=== PATIENT | female | born 1995 | race Caucasian/White ===

== ENCOUNTER 2018-01-07 18:55 | Emergency (ER) | payer OTHER ==
[~2018-01-07] VITALS: Ht 165.1 cm; Wt 71.0 kg
[2018-01-07] MEDS ORDERED: SODIUM CHLORIDE 0.9% 1000ML 1,000 ML IV STA (19:10)
[2018-01-07] MEDS ORDERED: KETOROLAC TROMETHAMINE 30 MG/ML VIAL IV STA (19:10)
[2018-01-07 19:19] VITALS: TEMP 36.7; O2SAT 98; Ht 165.1 cm; Wt 71.0 kg
--- NOTE | 2018-01-07 19:38 | DIAGNOSTIC IMAGING REPORT ---
CHEST ONE VIEW PORTABLE HISTORY: 22 years-old Female EVALUATE ALTERED MENTAL STATUS/WEAKNESS acutely altered mental status COMPARISON: None available TECHNIQUE: Portable AP view of the chest FINDINGS: Cardiomediastinal and hilar silhouettes are within normal limits. No pneumothorax, pleural effusion, focal airspace consolidation or overt pulmonary edema. The bones of the chest appear grossly intact. IMPRESSION: No acute process. The above report was generated using voice recognition software. It may contain grammatical, syntax or spelling errors. Electronically signed by: Artem Parr M.D. 01/07/2018 7:37 PM Dictated Date/Time: 01/07/2018 7:36 PM
[2018-01-07 19:42] VITALS: O2SAT 98
[2018-01-07 19:45] LABS: BASO % 0.2 %; BASO ABS # 0.02 K/uL (0-0.2); EOS % 0.4 %; EOS ABS # 0.03 K/uL (0-0.5); HEMATOCRIT 41.4 % (37-47); HEMOGLOBIN 14.8 g/dL (12.0-16.0); IG# 0.02 K/uL (0.00-0.02); LYMPH % 43.3 %; LYMPH ABS # 3.71 K/uL (1.2-3.4); MEAN CELL VOLUME 92.4 fL (80-100); MEAN CORPUSCULAR HGB CONC 35.7 g/dl (32-36); MEAN PLATELET VOLUME 9.6 fL (7.4-10.4); MONO % 9.7 %; MONO ABS # 0.83 K/uL (0.11-0.59); NEUT % 46.2 %; NEUT ABS # 3.95 K/uL (1.4-6.5); PLATELET COUNT 223 K/uL (130-400); RED CELL DISTRIBUTION WIDTH CV 11.6 % (11.5-14.5); RED CELL DISTRIBUTION WIDTH SD 39.5 fL (36.4-46.3); WHITE BLOOD COUNT 8.56 K/uL (4.8-10.8)
--- NOTE | 2018-01-07 20:03 | DIAGNOSTIC IMAGING REPORT ---
HEAD WITHOUT CONTRAST (CT) CLINICAL HISTORY: 22 years-old Female with EVALUATE ALTERED MENTAL STATUS/WEAKNESS. Acute weakness with altered mental status TECHNIQUE: Multiple axial CT images of the head were obtained without contrast. A dose lowering technique was utilized adhering to the principles of ALARA. CT DOSE: 537.48 mGy.cm COMPARISON: None. FINDINGS: No acute intracranial hemorrhage, midline shift, intracranial mass, hydrocephalus, territorial ischemia or abnormal extra-axial collection. The calvarium is intact. The paranasal sinuses, mastoid air cells, and middle ear cavities are clear. IMPRESSION: No acute intracranial abnormality. The above report was generated using voice recognition software. It may contain grammatical, syntax or spelling errors. Electronically signed by: Artem Parr M.D. 01/07/2018 8:01 PM Dictated Date/Time: 01/07/2018 8:00 PM
[2018-01-07 20:05] LABS: ALBUMIN 4.3 gm/dl (3.4-5.0); ALT/SGPT 28 U/L (12-78); BLOOD UREA NITROGEN 9 mg/dl (7-18); CALCIUM 9.2 mg/dl (8.5-10.1); CARBON DIOXIDE 24 mmol/L (21-32); CREATININE 0.55 mg/dl (0.60-1.20); GLUCOSE 72 mg/dl (70-99); POTASSIUM 3.5 mmol/L (3.5-5.1); SODIUM 137 mmol/L (136-145)
[2018-01-07] MEDS ORDERED: LORA-741 PO (20:13)
[2018-01-07] MEDS ORDERED: CYCL5TAB PO (20:13)
[2018-01-07 20:16] LABS: ALKALINE PHOSPHATASE 62 U/L (45-117); AST/SGOT 14 U/L (15-37); TOTAL PROTEIN 7.8 gm/dl (6.4-8.2)
[2018-01-07 21:24] VITALS: BP 129/93; PULSE 112
--- NOTE | 2018-01-08 00:17 | EMERGENCY ROOM VISIT NOTE ---
History Report prepared by Graceibjosé miguel: Fabrice Benitez Under the Supervision of: Dr. Randy Rosa D.O. First contact with patient: 18:56 Stated Complaint: SYNCOPE History of Present Illness The patient is a 22 year old female who presents to the Emergency Room with complaints of a resolved near syncopal episode that occurred prior to arrival. The patient states that she has been experiencing intermittent posterior head pressure and a feeling "as if I am going to pass out" for the last month. The patient states that the pressure occurs randomly throughout the day and is not changed with position. She reports that she has seen her physician at home where she was given muscle relaxers because they thought the pain was due to musculoskeletal neck pain. The patient states that she had an MRA done three days ago, which was negative. She reports that today she started to experience the posterior head pressure on the right side in class. The patient states that when she got home, she took a muscle relaxer and took a nap. She reports that when she woke up and stood up, the headache wrapped around her head and her eyes "blanked out". The patient denies any loss of consciousness. The patient denies fevers, chest pain, shortness of breath, nausea, vomiting, diarrhea, pain with urination, and melena. She denies diabetes, hypertension, hyperlipidemia, CAD, history of sudden at a young age, and smoking. The patient reports a family history of brain aneurysms, which caused her grandfather to at the age of 30. Source of History: patient Onset: prior to arrival Position: other (global) Timing: resolved Associated Symptoms: No fevers, No chest pain, No SOB, No nausea, No vomiting, No melena, No diarrhea, No urinary symptoms Review of Systems See HPI for pertinent positives & negatives. A total of 10 systems reviewed and were otherwise negative. Past Medical & Surgical Medical Problems: (1) No known health problems Family History FH: aneurysm Social History Marital Status: single Housing Status: lives with roommate Occupation Status: [employer] student Current/Historical Medications Scheduled PRN Cyclobenzaprine Hcl (Flexeril), 5 MG PO HS PRN for Muscle Spasms Lorazepam (Ativan), 0.25 MG PO TID PRN for Anxiety Allergies Coded Allergies: No Known Allergies (Unverified , 01/07/18) Physical Exam Vital Signs Date Time Temp Pulse Resp B/P (MAP) Pulse Ox O2 Delivery O2 Flow Rate FiO2 01/07/18 21:24 106 122/82 96 135/89 112 129/93 01/07/18 19:42 98 Room Air 01/07/18 19:19 36.7 88 17 143/96 98 Room Air Physical Exam GENERAL: Sitting up in bed, alert, well appearing, well nourished, no distress, non-toxic EYE EXAM: normal conjunctiva. PERRL and EOM's intact. OROPHARYNX: no exudate, no erythema, lips, buccal mucosa, and tongue normal and mucous membranes are moist NECK: supple, no nuchal rigidity, no adenopathy, acute reproducible tenderness bilaterally to the cervical paraspinal region, worse on right side tracking to trapezius. LUNGS: Clear to auscultation. Normal chest wall mechanics HEART: no murmurs, S1 normal and S2 normal ABDOMEN: abdomen soft, non-tender, normo-active bowel sounds, no masses, no rebound or guarding. BACK: Back is symmetrical on inspection and there is no deformity, no midline tenderness, no CVA tenderness. SKIN: no rashes and no bruising UPPER EXTREMITIES: upper extremities are grossly normal. LOWER EXTREMITIES: No pitting edema. NEURO EXAM: Normal sensorium, cranial nerves II-XII grossly intact, normal speech, no gross weakness of arms, no gross weakness of legs. No drift. Finger to nose intact. Gross sensation intact. Medical Decision & Procedures ER Provider Diagnostic Interpretation: Radiology results as stated below per my review and the radiologist's interpretation: HEAD WITHOUT CONTRAST (CT) CLINICAL HISTORY: 22 years-old Female with EVALUATE ALTERED MENTAL STATUS/WEAKNESS. Acute weakness with altered mental status TECHNIQUE: Multiple axial CT images of the head were obtained without contrast. A dose lowering technique was utilized adhering to the principles of ALARA. CT DOSE: 537.48 mGy.cm COMPARISON: None. FINDINGS: No acute intracranial hemorrhage, midline shift, intracranial mass, hydrocephalus, territorial ischemia or abnormal extra-axial collection. The calvarium is intact. The paranasal sinuses, mastoid air cells, and middle ear cavities are clear. IMPRESSION: No acute intracranial abnormality. The above report was generated using voice recognition software. It may contain grammatical, syntax or spelling errors. Electronically signed by: Artem Parr M.D. 01/07/2018 8:01 PM Dictated Date/Time: 01/07/2018 8:00 PM CHEST ONE VIEW PORTABLE HISTORY: 22 years-old Female EVALUATE ALTERED MENTAL STATUS/WEAKNESS acutely altered mental status COMPARISON: None available TECHNIQUE: Portable AP view of the chest FINDINGS: Cardiomediastinal and hilar silhouettes are within normal limits. No pneumothorax, pleural effusion, focal airspace consolidation or overt pulmonary edema. The bones of the chest appear grossly intact. IMPRESSION: No acute process. The above report was generated using voice recognition software. It may contain grammatical, syntax or spelling errors. Electronically signed by: Artem Parr M.D. 01/07/2018 7:37 PM Dictated Date/Time: 01/07/2018 7:36 PM Laboratory Results 01/07/18 19:26 Red Blood Count 4.48, Mean Corpuscular Volume 92.4, Mean Corpuscular Hemoglobin 33.0, Mean Corpuscular Hemoglobin Concent 35.7, Mean Platelet Volume 9.6, Neutrophils (%) (Auto) 46.2, Lymphocytes (%) (Auto) 43.3, Monocytes (%) (Auto) 9.7, Eosinophils (%) (Auto) 0.4, Basophils (%) (Auto) 0.2, Neutrophils # (Auto) 3.95, Lymphocytes # (Auto) 3.71, Monocytes # (Auto) 0.83, Eosinophils # (Auto) 0.03, Basophils # (Auto) 0.02 01/07/18 19:26 Test 01/07/18 19:26 01/07/18 21:15 White Blood Count 8.56 K/uL (4.8-10.8) Red Blood Count 4.48 M/uL (4.2-5.4) Hemoglobin 14.8 g/dL (12.0-16.0) Hematocrit 41.4 % (37-47) Mean Corpuscular Volume 92.4 fL (80-100) Mean Corpuscular Hemoglobin 33.0 pg (25-34) Mean Corpuscular Hemoglobin Concent 35.7 g/dl (32-36) Platelet Count 223 K/uL (130-400) Mean Platelet Volume 9.6 fL (7.4-10.4) Neutrophils (%) (Auto) 46.2 % Lymphocytes (%) (Auto) 43.3 % Monocytes (%) (Auto) 9.7 % Eosinophils (%) (Auto) 0.4 % Basophils (%) (Auto) 0.2 % Neutrophils # (Auto) 3.95 K/uL (1.4-6.5) Lymphocytes # (Auto) 3.71 K/uL (1.2-3.4) Monocytes # (Auto) 0.83 K/uL (0.11-0.59) Eosinophils # (Auto) 0.03 K/uL (0-0.5) Basophils # (Auto) 0.02 K/uL (0-0.2) RDW Standard Deviation 39.5 fL (36.4-46.3) RDW Coefficient of Variation 11.6 % (11.5-14.5) Immature Granulocyte % (Auto) 0.2 % Immature Granulocyte # (Auto) 0.02 K/uL (0.00-0.02) Anion Gap 9.0 mmol/L (3-11) Est Creatinine Clear Calc Drug Dose 159.9 ml/min Estimated GFR () > 150.0 Estimated GFR (Non- 134.1 BUN/Creatinine Ratio 15.6 (10-20) Bedside Glucose 85 mg/dl (70-90) Calcium Level 9.2 mg/dl (8.5-10.1) Total Bilirubin 0.6 mg/dl (0.2-1) Direct Bilirubin 0.2 mg/dl (0-0.2) Aspartate Amino Transf (AST/SGOT) 14 U/L (15-37) Alanine Aminotransferase (ALT/SGPT) 28 U/L (12-78) Alkaline Phosphatase 62 U/L (45-117) Troponin I < 0.015 ng/ml (0-0.045) Total Protein 7.8 gm/dl (6.4-8.2) Albumin 4.3 gm/dl (3.4-5.0) Thyroid Stimulating Hormone (TSH) 3.110 uIu/ml (0.300-4.500) Urine Color YELLOW Urine Appearance CLEAR (CLEAR) Urine pH 7.0 (4.5-7.5) Urine Specific [place] 1.022 (1.000-1.030) Urine Protein NEG (NEG) Urine Glucose (UA) NEG (NEG) Urine Ketones 3+ (NEG) Urine Occult Blood NEG (NEG) Urine Nitrite NEG (NEG) Urine Bilirubin NEG (NEG) Urine Urobilinogen NEG (NEG) Urine Leukocyte Esterase NEG (NEG) Urine Test NEG (NEG) Laboratory results per my review. Medications Administered Medications (Trade) Dose Ordered Sig/Charles Route Start Time Stop Time Status Last Admin Dose Admin Sodium Chloride 1,000 ml @ 999 mls/hr Q1H1M STAT IV 01/07/18 19:10 01/07/18 20:10 DC 01/07/18 19:10 999 MLS/HR Ketorolac Tromethamine (Toradol Inj) 30 mg NOW STAT IV 01/07/18 19:10 01/07/18 19:12 DC 01/07/18 19:10 30 MG ECG Per My Interpretation Indication: syncope Rate (beats per minute): 92 Rhythm: sinus rhythm Findings: other (Normal axis and intervals) ED Course ED COURSE: Vital signs were reviewed and showed normal The patients medical record was reviewed The above diagnostic studies were performed and reviewed. ED treatments and interventions as stated above. 1902: The patient was evaluated in room D03A. A complete history and physical examination was performed. 2019: I reevaluated the patient and she is doing well. 2125: Upon reevaluation, the patient is resting comfortably. I discussed my findings with the patient and she understands and agrees with the treatment plan. Based on the patients age, coexisting illnesses, exam and lab findings the decision to treat as an outpatient was made. The patient remained stable while under my care. The patient appeared well at the time of discharge. Medical Decision Differential diagnosis includes etiologies such as vasovagal event, infection, hypoglycemia, electrolyte abnormalities, cardiac sources, intracerebral event, toxicologic, neurologic, as well as others were entertained. Patient is a 22-year-old female who presents to ER as she stood up after sleeping and taking Flexeril for neck pain and almost passed out. She did not lose consciousness. She recently had an MRA which was negative for any aneurysms as she does have a family history of this. Neurologic exam is completely intact. CBC along with BMP, LFTs, bilirubin, troponin and TSH were normal. UA was negative. was negative. CT head was unremarkable. EKG was unremarkable as well. Patient was updated at bedside. She was discharged to follow-up with PCP as an outpatient. I do favor this is likely multifactorial and secondary to taking the Flexeril and standing up too quickly from sleeping. She was given IV fluids while in the ER along with IV Toradol. She did feel much better and was discharged. Discussed with Pt concerning signs and symptoms to watch out for. Pt was instructed to follow up with their PCP and discussed with the patient their option to return to the ED at anytime for persistent or worsening symptoms. The appropriate anticipatory guidance and out- patient management, including indications for return to the emergency department , were explained at length to the patient and understood. Medication Reconcilliation Current Medication List: was personally reviewed by me Blood Pressure Screening Patient's blood pressure: Normal blood pressure Impression Primary Impression: Near syncope Scribe Attestation The scribe's documentation has been prepared under my direction and personally reviewed by me in its entirety. I confirm that the note above accurately reflects all work, treatment, procedures, and medical decision making performed by me. Departure Information Dispostion Home / Self-Care Forms HOME CARE DOCUMENTATION FORM, IMPORTANT VISIT INFORMATION Patient Instructions ED Near Syncope Unkn, [facility] Additional Instructions Please follow up with your primary care doctor or if you are a student, [facility] with in the next 24 hours. Any worsening of your symptoms, please return to the ED immediately. This includes any fevers greater than 100.4, worsening pain, chest pain, shortness breath, persistent nausea, vomiting, unable to eat or drink, or any other concerning signs or symptoms from your standpoint. Please take Tylenol or Motrin as needed for pain.
== END 2018-01-07 21:51 | disposition home or self-care (01) ==
LOC: C.EDB 18:57 → C.EDD 21:51
DX: R55 Syncope and collapse (principal); R51 Headache; Z82.0 Family history of epilepsy and other diseases of the nervous system